=== PATIENT | male | born 1985 | race African-American/Black ===

== ENCOUNTER 2017-08-20 03:42 | Emergency (ER) | payer SELFPAY ==
[~2017-08-20] VITALS: Ht 180.3 cm; Wt 91.0 kg
[2017-08-20] MEDS ORDERED: TETANUS, DIPHTHERIA, PERTUSSIS VAC/PF 0.5ML (>7YR OLD) IM ONE (06:30)
[2017-08-20 06:59] LABS: CHLORIDE 107 mEq/L (98-107)
[2017-08-20 07:01] LABS: BASOPHILS % 0.6 % (0.0-2.0); HEMATOCRIT. 39.6 % (42.0-52.0); HEMOGLOBIN. 13.2 g/dL (14.0-18.0); LYMPHOCYTES % 20.3 % (20.0-50.0); MEAN CORPUSCULAR HEMOGLOBIN 27.9 pg (28.0-32.0); MEAN CORPUSCULAR VOLUME 83.8 fL (80.0-94.0); MEAN PLATELET VOLUME 7.5 fl (7.4-10.4); MONOCYTES % 5.4 % (2.0-8.0); NEUTROPHILS % 71.7 % (40.0-76.0); PLATELET 357 x1000/uL (130-400); RED BLOOD CELL COUNT 4.73 mill/uL (4.7-6.1); RED CELL DISTRIBUTION WIDTH 14.4 % (11.6-14.6)
[2017-08-20 08:15] VITALS: BP 104/59
[2017-08-20] MEDS ORDERED: MORPHINE SULFATE 4 MG/ML CPJ (NOT FOR IM USE) IV ONE (14:15)
[2017-08-20] MEDS ORDERED: ONDANSETRON HCL 4MG/2ML VIAL IV ONE (14:15)
[2017-08-20] MEDS ORDERED: ALBUTEROL (0.5%) 2.5MG/0.5ML NEB HHN ONE (14:15)
== END 2017-08-20 08:21 | disposition home or self-care (01) ==
LOC: ER 03:42
DX: S01.112A Laceration without foreign body of left eyelid and periocular area, initial encounter (principal); I44.0 Atrioventricular block, first degree; W22.8XXA Striking against or struck by other objects, initial encounter; Y93.89 Activity, other specified; Y92.012 Bathroom of single-family (private) house as the place of occurrence of the external cause
CPT/HCPCS: 12053; 36415; 70450; 71045; 80053; 83880; 84484; 85025; 93005; 99285; X7700; Z7610

== ENCOUNTER 2017-08-26 13:56 | Emergency (ER) | payer SELFPAY ==
[~2017-08-26] VITALS: Ht 180.3 cm; Wt 91.0 kg
[2017-08-26 14:03] VITALS: BP 114/88
== END 2017-08-26 14:35 | disposition home or self-care (01) ==
LOC: ER 13:56
DX: S01.112D Laceration without foreign body of left eyelid and periocular area, subsequent encounter (principal); F17.200 Nicotine dependence, unspecified, uncomplicated; X58.XXXD Exposure to other specified factors, subsequent encounter
CPT/HCPCS: 99281; Z7610